=== PATIENT | male | born 1955 | race Caucasian/White ===

== ENCOUNTER → 2017-04-27 | Outpatient (CLI) | payer OTHER ==
[2014-08-23 11:01] VITALS: BP 112/67
[~2017-04-27] MED LIST: ASPI81TA44 PO; BUDE10.2 IH; GABA-586 PO; LISI10TA2 PO; MULT-246 PO; NAPR500T8 PO; OMEP40CA5 PO; TERA10CA3 PO
--- NOTE | 2017-04-27 11:15 | RAD ---
INDICATION: Low back pain and bilateral leg numbness. TECHNIQUE: Sagittal T1, sagittal T2, sagittal STIR, axial T1, and axial T2 sequences are provided. No comparison is available. FINDINGS: There is 4 mm of anterolisthesis at L4-L5. There is otherwise no malalignment. There is no worrisome marrow lesion. There is minimal edema in the anterior superior corner of L4 and L5, probably degenerative. There is diffuse disc desiccation. There is slight narrowing of disc height, most notably at L1-L2. The conus medullaris is normal in signal intensity and in position. The numbering system assumes 5 lumbar type vertebral bodies. Findings by individual level are as follows: L1-L2: Disc bulge and facet and ligamentum flavum hypertrophy are noted. Epidural fat is mildly prominent. Midline AP diameter of the thecal sac is narrowed to 8 mm, mild to moderate. There is mild lateral recess narrowing. There is mild foraminal narrowing. L2-L3: Diffuse disc bulge and mild facet hypertrophy are noted. Epidural fat is again mildly prominent. Midline AP diameter of the thecal sac is narrowed to 9-10 mm. There is lateral recess narrowing, mild and greater on the right. There is [id number] foraminal narrowing, spur on the right contacts and flattens the exiting nerve root. L3-L4: Disc bulge and mild facet hypertrophy are noted. Midline AP diameter of the thecal sac is 10 mm. There is mild right lateral recess narrowing. There is [id number]-[id number] bilateral foraminal narrowing. L4-L5: In addition to the anterolisthesis, there is a diffuse disc bulge. There is moderate facet and ligamentum flavum hypertrophy. There is moderate to severe canal stenosis with minimal CSF surrounding the nerve roots at this level. There is lateral recess narrowing bilaterally. Foraminal narrowing is moderate. L5-S1: There is minimal facet hypertrophy without canal or foraminal compromise. IMPRESSION: Degenerative changes in the lumbar spine are greatest at L4-L5. Electronically signed by: Oscar Jefferson MD (04/27/2017 11:11 AM) [email or web address]
== END | disposition home or self-care (01) ==
LOC: MRI 09:31
PROVIDERS: ATTEND Family Medicine
DX: M47.896 Other spondylosis, lumbar region (principal); M51.26 Other intervertebral disc displacement, lumbar region; M48.061 Spinal stenosis, lumbar region without neurogenic claudication; R20.0 Anesthesia of skin
CPT/HCPCS: 72148

== ENCOUNTER → 2017-08-26 | Outpatient (CLI) | payer MEDICARE | END | disposition home or self-care (01) | LOC: KCIC US 07:51 | DX: I73.9 Peripheral vascular disease, unspecified (principal); I66.01 Occlusion and stenosis of right middle cerebral artery | CPT/HCPCS: 93922; 93925 ==

== ENCOUNTER 2017-09-05 21:24 | Emergency (ER) | payer MEDICARE ==
[2017-09-05 22:51] LABS: ADD MAN DIFF? NO
[2017-09-05 22:54] LABS: BASO # 0.1 x10^3/uL (0.0-0.2); BASO % 1 % (0-3); EOS # 0.3 x10^3/uL (0.0-0.7); EOS % 3 % (0-3); HEMATOCRIT 41.5 % (39.0-53.0); HEMOGLOBIN 14.8 g/dL (13.0-17.5); LYMPH # 2.9 x10^3/uL (1.0-4.8); LYMPH % 29 % (24-48); MEAN CORPUSCULAR HEMOGLOBIN 32 pg (25-35); MEAN CORPUSCULAR HGB CONC 36 g/dL (31-37); MEAN CORPUSCULAR VOLUME 90 fL (79-100); MONO # 0.6 x10^3/uL (0.0-1.1); MONO % 6 % (0-9); NEUT # 6.2 x10^3uL (1.8-7.7); NEUT % 61 % (31-73); PLATELET COUNT 178 x10^3/uL (140-400); RED BLOOD COUNT 4.64 x10^6/uL (4.30-5.70); RED CELL DISTRIBUTION WIDTH 13.9 % (11.5-14.5)
[2017-09-05] MEDS: fentaNYL PF VIAL 100 MCG/2 ML VIAL IV (22:54)
[2017-09-05 23:02] LABS: INR 1.1 (0.8-1.1); PROTHROMBIN TIME PATIENT 13.5 SEC (11.7-14.0)
[2017-09-05 23:05] LABS: ANION GAP 9 (6-14); BLOOD UREA NITROGEN 14 mg/dL (8-26); BUN/CREATININE RATIO 16 (6-20); CALCIUM 8.3 mg/dL (8.5-10.1); CARBON DIOXIDE 27 mmol/L (21-32); CHLORIDE 104 mmol/L (98-107); CREATININE 0.9 mg/dL (0.7-1.3); GFR 85.5; GLUCOSE 97 mg/dL (70-99); POTASSIUM 3.7 mmol/L (3.5-5.1); SODIUM 140 mmol/L (136-145)
[2017-09-05 23:11] LABS: ALBUMIN 3.5 g/dL (3.4-5.0); ALBUMIN/GLOBULIN RATIO 0.9 (1.0-1.7); ALK PHOS 72 U/L (46-116); ALT (SGPT) 21 U/L (16-63); AST (SGOT) 14 U/L (15-37); TOTAL BILIRUBIN 0.6 mg/dL (0.2-1.0); TOTAL PROTEIN 7.3 g/dL (6.4-8.2)
[2017-09-05 23:14] LABS: TROPONINI < 0.017 ng/mL (0.000-0.055)
[2017-09-06] MEDS ORDERED: CONTRAST GIVEN MC
[2017-09-06] MEDS: IOHEXOL 300 MG/ML 100ML VIAL. IV (00:05)
[2017-09-06] MEDS: HYDROcodone/APAP 5/325MG 1 TAB TABLET PO (01:00)
== END 2017-09-06 01:33 | disposition home or self-care (01) ==
LOC: ER 09-06 01:33
DX: R07.89 Other chest pain (principal); J44.9 Chronic obstructive pulmonary disease, unspecified; I10 Essential (primary) hypertension; Z88.5 Allergy status to narcotic agent
CPT/HCPCS: 36415; 71045; 71275; 80053; 84484; 85025; 85610; 93005; 96374; 99285-25; J3010; Q9967

== ENCOUNTER → 2017-09-07 | Outpatient (CLI) | payer MEDICARE ==
[~2017-09-07] MED LIST changes: -ASPI81TA44 PO; -BUDE10.2 IH; -GABA-586 PO; +IOHEXOL 180 MG/ML 10 ML VIAL.; -LISI10TA2 PO; -MULT-246 PO; -NAPR500T8 PO; -OMEP40CA5 PO; -TERA10CA3 PO; +methylPREDNISolone ACETATE 40 MG/ML VIAL.; +methylPREDNISolone ACETATE 80 MG/ML VIAL.
== END ==
LOC: PNCL 09:25
DX: M51.16 Intervertebral disc disorders with radiculopathy, lumbar region (principal); M48.061 Spinal stenosis, lumbar region without neurogenic claudication; E11.9 Type 2 diabetes mellitus without complications; I10 Essential (primary) hypertension; M19.90 Unspecified osteoarthritis, unspecified site; J44.9 Chronic obstructive pulmonary disease, unspecified; E78.00 Pure hypercholesterolemia, unspecified; M79.605 Pain in left leg; M79.604 Pain in right leg; Z98.890 Other specified postprocedural states; Z79.899 Other long term (current) drug therapy; Z88.8 Allergy status to other drugs, medicaments and biological substances; Z87.891 Personal history of nicotine dependence; Z85.828 Personal history of other malignant neoplasm of skin
CPT/HCPCS: 62323; J1030; J1040; Q9965

== ENCOUNTER → 2017-09-21 | Outpatient (CLI) | payer MEDICARE ==
[~2017-09-21] MED LIST changes: +LIDOCAINE 1% PF 2 ML VIAL.
== END | disposition home or self-care (01) ==
LOC: PNCL 10:09
DX: M51.16 Intervertebral disc disorders with radiculopathy, lumbar region (principal); M48.061 Spinal stenosis, lumbar region without neurogenic claudication; Z88.5 Allergy status to narcotic agent; E11.42 Type 2 diabetes mellitus with diabetic polyneuropathy; I10 Essential (primary) hypertension; J44.9 Chronic obstructive pulmonary disease, unspecified; Z98.890 Other specified postprocedural states; M19.90 Unspecified osteoarthritis, unspecified site; Z79.84 Long term (current) use of oral hypoglycemic drugs; Z86.19 Personal history of other infectious and parasitic diseases; F41.9 Anxiety disorder, unspecified; F32.9 Major depressive disorder, single episode, unspecified; Z72.89 Other problems related to lifestyle; F17.200 Nicotine dependence, unspecified, uncomplicated
CPT/HCPCS: 62323; J1030; J1040; Q9965

== ENCOUNTER → 2017-10-25 | Outpatient (CLI) | payer MEDICARE | LOC: PNCL 09:47 | DX: M51.16 Intervertebral disc disorders with radiculopathy, lumbar region (principal); M48.061 Spinal stenosis, lumbar region without neurogenic claudication; E11.42 Type 2 diabetes mellitus with diabetic polyneuropathy; I10 Essential (primary) hypertension; J44.9 Chronic obstructive pulmonary disease, unspecified; F32.9 Major depressive disorder, single episode, unspecified; F41.9 Anxiety disorder, unspecified; F17.210 Nicotine dependence, cigarettes, uncomplicated; Z87.39 Personal history of other diseases of the musculoskeletal system and connective tissue; Z72.89 Other problems related to lifestyle; Z86.19 Personal history of other infectious and parasitic diseases | CPT/HCPCS: 62323; J1030; J1040; Q9965 ==

== ENCOUNTER → 2018-03-13 | Outpatient (CLI) | payer MEDICARE ==
[2017-09-06 01:08] VITALS: BP 125/66
[~2018-03-13] MED LIST changes: +ALPR0.5T PO; +ASPI81TA59 PO; +ATOR40TA59 PO; +BUDE10.2 IH; +DOXY100T9 PO; +GABA-586 PO; +HYDR-971 PO; -IOHEXOL 180 MG/ML 10 ML VIAL.; +IOHEXOL 180 MG/ML 10 ML VIAL. ONE; -LIDOCAINE 1% PF 2 ML VIAL.; +LIDOCAINE 1% PF 2 ML VIAL. ONE; +LISI10TA2 PO; +MELO15TA23 PO; +MULT-246 PO; +NAPR500T8 PO; +OMEP40CA5 PO; +PRED50TA PO; +TERA10CA3 PO; -methylPREDNISolone ACETATE 40 MG/ML VIAL.; +methylPREDNISolone ACETATE 40 MG/ML VIAL. ONE; -methylPREDNISolone ACETATE 80 MG/ML VIAL.; +methylPREDNISolone ACETATE 80 MG/ML VIAL. ONE
--- NOTE | 2018-03-14 00:28 | PAIN ---
DATE OF SERVICE: 03/13/2018 PROGRESS NOTE FOR PAIN CLINIC DIAGNOSES: Lumbar radiculopathy with lumbar degenerative disk disease and lumbar spinal stenosis. HISTORY OF PRESENT ILLNESS: The patient is a 62-year-old male who returns for followup status post lumbar epidural steroid injections, last seen 10/25/2017. The patient did very well with about 75% improvement, looks like overall. The patient reports now about 50% improvement but still has been doing well, has been returning over the past 6-8 weeks in the low back and into the bilateral lower extremities. The patient reports it is 8 on a scale of 10 at its worst, 5 on average and a 2 at its least and is a 5 today. The patient reports it is aching, tight, tingling, burning, cramping, shooting unbearable at times, worse with walking and standing, better with sitting or lying down, does not awaken him from sleep at night. The patient reports no new motor or sensory deficits and no new bowel or bladder incontinence or other complaints. PHYSICAL EXAMINATION: VITAL SIGNS: The patient's blood pressure /75, pulse 87, respirations 18 and temperature 98.5 degrees Fahrenheit. Height is 5 feet 6 inches and weight is 193 pounds. GENERAL: He is awake, alert, oriented, appropriate and very pleasant demeanor. HEENT: Head shows normocephalic and atraumatic. Extraocular movements are intact and symmetrical. Oral cavity: Mucous membranes are moist and pink. Dentition is intact. NECK: Shows anterior throat supple without palpable lymphadenopathy noted. Swallow reflex symmetrical. CHEST: Shows normal on inspection. Breath sounds clear to auscultation bilaterally. HEART: Shows S1 and S2 clear. No murmurs auscultated. ABDOMEN: Soft, nontender and nondistended. No palpable organomegaly is noted. No rebound or guarding demonstrated. BACK: Shows spine grossly in the midline. Normal appearing thoracic kyphosis and lumbar lordotic curvature. Lumbar paraspinous muscle shows symmetrical on inspection, on palpation shows some moderate tenderness but only diffusely without radiation bilaterally. The patient has good rotational motion of the lumbar spine, especially with extension and flexion without difficulty. LOWER EXTREMITIES: Show deep tendon reflexes 2+ in the patellar, 1+ tendo-calcaneus tendons are equal. Motor exam is strong with 5/5 dorsiflexion, extension, quadriceps and hamstring flexion. Peripheral pulses are 1+ posterior tibia. No peripheral edema is noted bilaterally. Options were discussed with the patient. The patient's old chart was reviewed as well as his current medication regimen updated. Current review of systems updated today as well. We will proceed with a lumbar epidural steroid injection today with first in this series with fluoroscopic guidance. Risks were again discussed including, but not limited to bleeding, infection, possibility of epidural hematoma, subsequent neurological compromise, dural puncture, headaches, spinal cord and/or nerve damage, side effects of steroid medication and poor results regarding pain control. The patient understands and wished to proceed. The patient will return to the clinic in approximately 2 weeks for followup, was counseled as to return appointment, activity level and side effects to be aware of. DIAGNOSES: Lumbar radiculopathy with lumbar degenerative disk disease and lumbar spinal stenosis. PROCEDURE: Lumbar epidural steroid injection, translaminar approach, L4-L5 level using C-arm fluoroscopic guidance under sterile prep and drape using local anesthetic. MEDICATION INJECTED: A total of 120 mg Depo-Medrol plus 10 mL of preservative-free normal saline and 2 mL of Isovue for contrast. CONDITION AT DISCHARGE: Stable. The patient tolerated the procedure well and had no complications. ROSENDO HERNANDEZ MD DR: KRISTOFER/celso JOB#: [id number] / [id number]
== END | disposition home or self-care (01) ==
LOC: PNCL 13:58
PROVIDERS: ATTEND Anesthesiology
DX: M51.16 Intervertebral disc disorders with radiculopathy, lumbar region (principal); M48.061 Spinal stenosis, lumbar region without neurogenic claudication; Z88.5 Allergy status to narcotic agent
CPT/HCPCS: 62323; J1030; J1040; Q9965

== ENCOUNTER → 2018-04-07 | Outpatient (CLI) | payer MEDICARE ==
[2017-09-06 01:08] VITALS: BP 125/66
[~2018-04-07] MED LIST changes: -GABA-586 PO; +GABA300C18 PO; +HYDR-3164 PO; -HYDR-971 PO; -IOHEXOL 180 MG/ML 10 ML VIAL. ONE; -LIDOCAINE 1% PF 2 ML VIAL. ONE; -methylPREDNISolone ACETATE 40 MG/ML VIAL. ONE; -methylPREDNISolone ACETATE 80 MG/ML VIAL. ONE
--- NOTE | 2018-04-07 16:20 | RAD ---
Low-dose CT of the chest without contrast, 04/07/2018: HISTORY: 25 pack-year smoking history, current smoker Noncontrast scans were obtained with multiplanar reconstructions produced. There are several calcified granulomata in the right lung. No noncalcified pulmonary nodule or mass is seen. No pulmonary infiltrate or pleural fluid is evident. There are calcified mediastinal lymph nodes due to old granulomatous disease. No mediastinal adenopathy is evident. There is mild calcific plaquing of the thoracic aorta. Several scattered coronary artery calcifications are noted. A surgical plate and screws is noted in the lower cervical spine. There are mild scattered degenerative changes in the thoracic spine. IMPRESSION: 1. Old healed granulomatous disease in the chest. 2. Coronary artery calcifications. 3. Lung RADS category 1-negative. Twelve-month follow-up is suggested. PQRS Compliance Statement: One or more of the following individualized dose reduction techniques were utilized for this examination: 1. Automated exposure control 2. Adjustment of the mA and/or kV according to patient size 3. Use of iterative reconstruction technique Electronically signed by: Jesús Osuna MD (04/07/2018 4:17 PM) [facility], [place]
== END | disposition home or self-care (01) ==
LOC: CT 08:25
PROVIDERS: ATTEND Family Medicine
DX: Z12.2 Encounter for screening for malignant neoplasm of respiratory organs (principal); F17.218 Nicotine dependence, cigarettes, with other nicotine-induced disorders; I25.10 Atherosclerotic heart disease of native coronary artery without angina pectoris; J84.10 Pulmonary fibrosis, unspecified; I70.0 Atherosclerosis of aorta; R59.0 Localized enlarged lymph nodes
CPT/HCPCS: G0297

== ENCOUNTER → 2018-04-20 | Outpatient (CLI) | payer MEDICARE ==
[2017-09-06 01:08] VITALS: BP 125/66
[~2018-04-20] MED LIST changes: +IOHEXOL 180 MG/ML 10 ML VIAL. ONE; +methylPREDNISolone ACETATE 40 MG/ML VIAL. ONE; +methylPREDNISolone ACETATE 80 MG/ML VIAL. ONE
--- NOTE | 2018-04-20 17:29 | PAIN ---
DATE OF SERVICE: 04/20/2018 PROGRESS NOTE FOR PAIN CLINIC DIAGNOSIS: Lumbar radiculopathy with lumbar spinal stenosis and lumbar degenerative disk disease. HISTORY OF PRESENT ILLNESS: The patient is a 62-year-old male who returns for followup status post lumbar epidural steroid injection x 1. The patient reports 100% improvement for about 3 weeks following the injection and the pain is beginning to return. There has been about 50% improvement overall in the low back and into the bilateral lower extremities. The patient reports it is aching across the back and the bilateral posterior gluteus, posterior lateral thigh, lateral anterior thigh, anterior medial thighs with walking, standing, changing positions, better with sitting or lying down. Reports it does not awaken him from sleep very frequently, but a few times over the past week, the patient reports his pain is tingling, becoming more constant, aching, dull, shooting, also pain in the base of the neck and the upper extremities, more on the left side with some numbness and tingling in his fourth and fifth fingers. The patient reports the pain is at 8 on a scale of 10 in his low back and legs at its worst, 4-5 on average and 2 at its least and is a 4 today. The patient reports no new motor or sensory deficits, no new bowel or bladder incontinence or other complaints. PHYSICAL EXAMINATION: VITAL SIGNS: The patient's blood is 137/75, pulse 87, respirations 18, temperature 98.3 degrees Fahrenheit. Height is 5 feet 6 inches, weight is 193 pounds. GENERAL: The patient is awake, alert, oriented, appropriate, very pleasant demeanor. HEENT: Shows normocephalic, atraumatic. Extraocular movements are intact and symmetrical. Oral cavity: Mucous membranes moist and pink. Dentition is intact. NECK: Shows anterior throat supple without palpable lymphadenopathy noted. Swallow reflex symmetrical. CHEST: Shows normal with inspection. Breath sounds clear to auscultation bilaterally. HEART: Shows S1, S2 clear. No murmurs auscultated. ABDOMEN: Soft, nontender, nondistended. No palpable organomegaly is noted. No rebound or guarding demonstrated. BACK: Shows spine grossly in the midline, normal appearing cervical lordotic curvature, thoracic kyphotic curvature and lumbar lordotic curvature, some mild tenderness in the cervical paraspinous musculature bilaterally, but only diffusely without radiation. The patient's lumbar paraspinous muscle shows symmetrical on inspection, on palpation shows some moderate tenderness with palpation, but only diffusely without radiation as well. The patient has good rotational motion of lumbar spine both laterally as well as extension and flexion without significant difficulty. EXTREMITIES: Lower extremities show deep tendon reflexes 2+ in the patella and 1+ in tendo calcaneus tendons. Motor exam is 5/5 on dorsiflexion, extension, quadriceps and hamstring flexion. Peripheral pulses are 1+ posterior tibia. No peripheral edema bilaterally. Options were discussed with the patient. The patient's old chart was reviewed as his current medication regimen updated. Current review of systems updated today as well. We will proceed with a lumbar epidural steroid injection today with fluoroscopic guidance. Risks were again discussed including, but not limited to, bleeding, infection, possibility of epidural hematoma, subsequent neurological compromise, dural puncture, headaches, spinal cord and/or nerve damage, side effects of steroid medication and poor results regarding pain control. The patient understands and wished to proceed. The patient to return to clinic in approximately 2 weeks for followup, was counseled on return appointment, activity level and side effects to be aware of. DIAGNOSIS: Lumbar radiculopathy with lumbar degenerative disk disease, lumbar spinal stenosis. PROCEDURE: Lumbar epidural steroid injection, translaminar approach at the L4-L5 level using C-arm fluoroscopic guidance under sterile prep and drape using local anesthetic. MEDICATION INJECTED: A total of 120 mg Depo-Medrol plus 10 mL of preservative-free normal saline and 2 mL of Isovue for contrast. CONDITION AT DISCHARGE: Stable. The patient tolerated procedure well, had no complications. ROSENDO HERNANDEZ MD DR: KRISTOFER/celso JOB#: [id number] / [id number]
== END | disposition home or self-care (01) ==
LOC: PNCL 13:10
PROVIDERS: ATTEND Anesthesiology
DX: M51.16 Intervertebral disc disorders with radiculopathy, lumbar region (principal); M48.061 Spinal stenosis, lumbar region without neurogenic claudication; Z88.5 Allergy status to narcotic agent
CPT/HCPCS: 62323; J1030; J1040; Q9965

== ENCOUNTER → 2018-05-18 | Outpatient (CLI) | payer MEDICARE ==
[2017-09-06 01:08] VITALS: BP 125/66
--- NOTE | 2018-05-18 18:01 | PAIN ---
DATE OF SERVICE: 05/18/2018 PROGRESS NOTE FOR PAIN CLINIC DIAGNOSES: 1. Lumbar radiculopathy with lumbar degenerative disk disease. 2. Lumbar spinal stenosis. HISTORY OF PRESENT ILLNESS: The patient is an 62-year-old male who returns for followup status post lumbar epidural steroid injection x 2. The patient reports about 60% improvement overall in the low back, bilateral lower extremity pain, still some pain in the lower legs with extended walking, standing, but otherwise doing much better, was increasing his distance walking, able to do work activities with greater ease and comfort as well as household activities and traveling with greater comfort. The patient reports it does not awaken him from sleep at night, feels better with sitting or lying down, sleeps about 7 hours without difficulty most nights. The patient reports pain is 8 on a scale of 10 at its worst, 6 on an average, 5 on its least and is about 6 today. The patient reports it is tingling, burning in the low back, in the lower extremities, on and off in intensity, but worse while standing. The patient reports no new motor or sensory deficits, no new bowel or bladder incontinence or other complaints. PHYSICAL EXAMINATION: VITAL SIGNS: The patient's blood pressure is 136/75, pulse 78, respirations are 18, temperature is 98.3 degrees Fahrenheit, height is 5 feet 6 inches, weighs 197 pounds. GENERAL: The patient is awake, alert, oriented, appropriate, very pleasant demeanor. HEENT: Head shows normocephalic, atraumatic. Extraocular movements intact and symmetrical. Oral cavity: Mucous membranes moist and pink. Dentition is intact. NECK: Shows anterior throat supple without palpable lymphadenopathy noted. Swallow reflex is symmetrical. CHEST: Shows normal on inspection. Breath sounds clear to auscultation bilaterally. HEART: Shows S1, S2 clear. No murmurs auscultated. ABDOMEN: Soft, nontender, nondistended. No palpable organomegaly is noted. No rebound or guarding demonstrated. BACK: Shows spine grossly in the midline. Normal-appearing thoracic kyphosis and lumbar lordotic curvature. Lumbar paraspinous muscle shows symmetrical on inspection; on palpation, shows some mild tenderness diffusely throughout the upper, middle and lower distribution of paraspinous muscles, but only diffusely. The patient has good rotational motion of lumbar spine, both laterally as well as extension and flexion without difficulty. EXTREMITIES: Lower extremities show deep tendon reflexes 2+ in the patellar and 1+ tendo calcaneus tendons. Motor exam is strong with 5/5 dorsiflexion and extension, quadriceps and hamstring flexion and symmetrical. Peripheral pulses are 1+ posterior tibial. No peripheral edema is noted bilaterally. Options were discussed with the patient. The patient's old chart was reviewed as was his current medication regimen updated. Current review of systems updated today as well. We will proceed with a third in the series of lumbar epidural steroid injection today with fluoroscopic guidance. Risks were again discussed including, but not limited to bleeding, infection, possibility of epidural hematoma and subsequent neurological compromise, dural puncture, headaches, spinal cord and/or nerve damage, side effects of steroid medication and poor results regarding pain control. The patient understands and wished to proceed. The patient to return to clinic in approximately 2 weeks for followup. She was counseled as to return appointment interval and side effects to be aware of. DIAGNOSES: 1. Lumbar radiculopathy with lumbar degenerative disk disease. 2. Lumbar spinal stenosis. PROCEDURE: Lumbar epidural steroid injection, translaminar approach L4-L5 level using C-arm fluoroscopic guidance under sterile prep and drape using local anesthetic. MEDICATION INJECTED: A total of 120 mg Depo-Medrol plus 10 mL of preservative-free normal saline and 2 mL of Isovue for contrast. CONDITION AT DISCHARGE: Stable. The patient tolerated the procedure well, had no complications. ROSENDO HERNANDEZ MD DR: KRISTOFER/celso JOB#: [id number] / [id number]
== END | disposition home or self-care (01) ==
LOC: PNCL 14:00
PROVIDERS: ATTEND Anesthesiology
DX: M51.16 Intervertebral disc disorders with radiculopathy, lumbar region (principal); M48.061 Spinal stenosis, lumbar region without neurogenic claudication; Z88.5 Allergy status to narcotic agent
CPT/HCPCS: 62323; J1030; J1040; Q9965

== ENCOUNTER → 2018-09-20 | Outpatient (CLI) | payer MEDICARE ==
[2017-09-06 01:08] VITALS: BP 125/66
[~2018-09-20] MED LIST changes: +ALPR0.5T6 PO; +DOCU-150 PO
--- NOTE | 2018-09-20 18:57 | PAIN ---
DATE OF SERVICE: 09/20/2018 DIAGNOSES: Lumbar radiculopathy with lumbar degenerative disk disease, lumbar spinal stenosis. HISTORY OF PRESENT ILLNESS: The patient is a 62-year-old male who returns for followup status post lumbar epidural steroid injections x 3, most recently seen 05/18/2018. The patient did very well with about 50% improvement for about 2 months. The patient reports the pain returned then in the low back and into the bilateral lower extremities, mostly in the posterior gluteus, posterolateral thigh, lateral anterior thigh, medial thigh, medial lower legs, also in the calves bilaterally with tingling, burning, cramping sensation, aching in the low back, becoming more severe, more constant over time. The patient reports it is a 9 on a scale of 10 at its worst over the past week, 6 on average, 5 at its least and is a 6 today. The patient reports no new motor or sensory deficits. No new bowel or bladder incontinence, but still significant pain with walking, standing, change in positions. Initially, he was doing great with distance walking, doing work activities and household activities with greater ease and comfort, travelling with greater ease and comfort as well. The patient reports now the pain is returning, but without any new motor or sensory deficits. The patient reports no new bowel or bladder incontinence as well and better with lying down. It does not awaken him from sleep very frequently, but has over the past few weeks about every 6-8 hours. PHYSICAL EXAMINATION: VITAL SIGNS: Today, the patient's blood pressure 129/79, pulse 80, respirations 16, temperature 98.0 degrees Fahrenheit, height is 5 feet 6 inches, weighs 200 pounds. GENERAL: The patient is awake, alert, oriented, appropriate, very pleasant demeanor. HEENT: Shows normocephalic, atraumatic. Extraocular movements are intact and symmetrical. Oral cavity: Mucous membranes moist and pink. Dentition is intact. NECK: Shows anterior throat supple without palpable lymphadenopathy noted. Swallow reflex is symmetrical. CHEST: Shows normal on inspection. Breath sounds are clear to auscultation bilaterally. HEART: Shows S1, S2 clear. No murmurs auscultated. ABDOMEN: Soft, nontender, nondistended. No palpable organomegaly is noted. No rebound or guarding demonstrated. BACK: Shows spine grossly in the midline. Normal appearing thoracic kyphosis and lumbar lordotic curvature. Lumbar paraspinous muscle shows symmetrical on inspection. On palpation shows some moderate tenderness diffusely bilaterally, but only diffusely without radiation. EXTREMITIES: The patient's lower extremities show deep tendon reflexes 2+ in the patellar, 1+ tendo calcaneus tendons. Motor exam is strong with 5/5 dorsiflexion, extension, quadriceps and hamstring flexion and symmetrical. Peripheral pulses are 1+ posterior tibia. No peripheral edema is noted. Options were discussed with the patient. The patient's old chart was reviewed as was his current medication regimen updated. Current review of systems is updated today as well. We will proceed with the first in this series of lumbar epidural steroid injection today with fluoroscopic guidance. Risks were again discussed including, but not limited to bleeding, infection, possibility of epidural hematoma, subsequent neurologic compromise, dural puncture, headaches, spinal cord and/or nerve damage, side effects of steroid medication and poor results regarding pain control. The patient understands and wished to proceed. The patient will return to the clinic in approximately 2 weeks for followup, was counseled on return appointment, activity level, and side effects to be aware of. DIAGNOSIS: Lumbar radiculopathy with lumbar degenerative disk disease, lumbar spinal stenosis. PROCEDURE: Lumbar epidural steroid injection, translaminar approach at the L4-L5 level using C-arm fluoroscopic guidance under sterile prep and drape using local anesthetic. MEDICATION INJECTED: A total of 120 mg Depo-Medrol plus 10 mL preservative-free normal saline and 2 mL of Isovue for contrast. CONDITION AT DISCHARGE: Stable. The patient tolerated the procedure well, had no complications. ROSENDO HERNANDEZ MD DR: KRISTOFER/celso JOB#: [id number] / [id number]
== END | disposition home or self-care (01) ==
LOC: PNCL 09:17
PROVIDERS: ATTEND Anesthesiology
DX: M51.16 Intervertebral disc disorders with radiculopathy, lumbar region (principal); M48.061 Spinal stenosis, lumbar region without neurogenic claudication; Z88.5 Allergy status to narcotic agent
CPT/HCPCS: 62323; J1030; J1040; Q9965

== ENCOUNTER → 2018-10-04 | Outpatient (CLI) | payer MEDICARE ==
[2017-09-06 01:08] VITALS: BP 125/66
--- NOTE | 2018-10-05 02:21 | PAIN ---
DATE OF SERVICE: 10/04/2018 PROGRESS NOTE FOR PAIN CLINIC DIAGNOSIS: Lumbar radiculopathy with lumbar degenerative disk disease, lumbar spinal stenosis. HISTORY OF PRESENT ILLNESS: The patient is a 62-year-old male who returns for followup status post lumbar epidural steroid injection x 1 on 09/20/2018. The patient reports about 30% improvement in his back and bilateral lower extremities pain. The patient reports he is having some cramps in the legs as well as in the hands. Otherwise, the pain is significantly reduced in the low back. The patient reports it took about 3 days to decrease the pain, but the pain was much better after that time. The patient reports it is still currently about 30% improved overall where he can increase his activity to greater distance walking, doing household activities, travelling with greater ease and comfort. The patient reports his pain is 7 on a scale of 10 at its worst over the past week, 4 on an average, 0 at its least and is 4 today. The patient reports it is across the low back, tingling and cramping in the legs bilaterally, mostly in the lateral thighs, posterior gluteus and anterior medial thigh to the lower legs as well. The patient reports no new motor or sensory deficits, no new bowel or bladder incontinence, no other complaints. PHYSICAL EXAMINATION: VITAL SIGNS: The patient's blood pressure is 134/87, pulse 78, respirations 16, temperature is 97.4 degrees Fahrenheit, height 5 feet 6 inches, weight is 194 pounds. GENERAL: The patient is awake, alert, oriented, appropriate, very pleasant demeanor. HEENT: Normocephalic, atraumatic. Extraocular movements are intact and symmetrical. Oral cavity, mucous membranes are most and pink. Dentition is intact. NECK: Shows anterior throat supple without palpable lymphadenopathy noted. Swallow reflex is symmetrical. CHEST: Shows normal on inspection. Breath sounds are clear to auscultation bilaterally. HEART: Shows S1, S2 clear. No murmurs auscultated. ABDOMEN: Soft, obese, nontender, nondistended. BACK: Shows spine grossly in the midline. Normal appearance of the thoracic kyphosis and lumbar lordotic curvature. Lumbar paraspinous muscles shows symmetric on inspection; on palpation shows some moderate tenderness diffusely with palpation, but only diffusely without radiation. EXTREMITIES: The patient's lower extremities show deep tendon reflexes at 2+ in the patellar, 1+ tendo-calcaneus tendons. Motor exam is strong with 5/5 dorsiflexion, extension, quadriceps and hamstring flexion and symmetrical and equal. Peripheral pulses are 1+ posterior tibial. No peripheral edema is noted bilaterally. Options were discussed with the patient. The patient's old chart was reviewed as was his current medication regimen updated. Current review of systems updated today as well. We will proceed with second in the series of lumbar epidural steroid injection today under fluoroscopic guidance. Risks were discussed including, but not limited to bleeding, infection, possibility of epidural hematoma, subsequent neurological compromise, dural puncture, headaches, spinal cord and/or nerve damage, side effects of steroid medication and poor results regarding pain control. The patient understands and wished to proceed. The patient will return to clinic in approximately 2 weeks for followup, was counseled as to return appointment, activity level and side effects to be aware of. DIAGNOSIS: Lumbar radiculopathy with lumbar degenerative disk disease, lumbar spinal stenosis. PROCEDURE: Lumbar epidural steroid injection, translaminar approach at the L4-L5 level using C-arm fluoroscopic guidance under sterile prep and drape using local anesthetic. MEDICATIONS INJECTED: Total of 120 mg of 120 mg Depo-Medrol plus 10 mL of preservative-free normal saline and 2 mL of contrast. CONDITION AT DISCHARGE: Stable. The patient tolerated the procedure well, had no complications. ROSENDO HERNANDEZ MD DR: KRISTOFER/celso JOB#: [id number] / [id number]
== END ==
LOC: PNCL 09:34
PROVIDERS: ATTEND Anesthesiology
DX: M51.16 Intervertebral disc disorders with radiculopathy, lumbar region (principal); M48.061 Spinal stenosis, lumbar region without neurogenic claudication; M54.9 Dorsalgia, unspecified
CPT/HCPCS: 62323; J1030; J1040; Q9965

== ENCOUNTER → 2018-10-18 | Outpatient (CLI) | payer MEDICARE ==
[2017-09-06 01:08] VITALS: BP 125/66
--- NOTE | 2018-10-18 20:25 | PAIN ---
DATE OF SERVICE: 10/18/2018 PROGRESS NOTE FOR PAIN CLINIC DIAGNOSES: Lumbar radiculopathy with lumbar degenerative disk disease, lumbar spinal stenosis. HISTORY OF PRESENT ILLNESS: The patient is a 62-year-old male who returns for followup status post lumbar epidural steroid injection x 2. The patient reports about 80% improvement overall after the last injection, but still has some pain in the low back and bilateral lower extremities, has some numbness in the feet, but the numbness is much improved. The patient reports the pain is a 6 on a scale of 10 at its worst in the past week, 4 on average, 2 at its least and is a 4 today. The patient reports it is aching, tight, cramping, tingling, worse with walking, standing and better with sitting or lying down. It awakens him from sleep every few hours, but not every night. The patient reports no new motor or sensory deficits, no new bowel or bladder incontinence or other complaints. PHYSICAL EXAMINATION: VITAL SIGNS: The patient's blood pressure is 131/80, pulse 78, respirations 16, temperature is 98.3 degrees Fahrenheit. Height is 5 feet 6 inches, weight is 198 pounds. GENERAL: The patient is awake, alert, oriented, appropriate, very pleasant demeanor. HEENT: Head shows normocephalic, atraumatic. Extraocular movements are intact and symmetrical. Oral cavity: Mucous membranes are moist and pink. Dentition intact. NECK: Shows anterior throat supple without palpable lymphadenopathy noted. Swallow reflex is symmetrical. CHEST: Shows normal on inspection. Breath sounds clear to auscultation bilaterally. HEART: Shows S1, S2 clear. No murmurs auscultated. ABDOMEN: Soft, nontender, nondistended. No palpable organomegaly is noted. No rebound or guarding demonstrated. BACK: Shows spine grossly in the midline. Normal appearing thoracic kyphosis and lumbar lordotic curvature. Lumbar paraspinous muscle shows symmetrical on inspection, on palpation shows moderate tenderness bilaterally in the lower lumbar distribution, but only in the inferior aspect without radiation. The patient has good rotational motion of lumbar spine, both laterally as well as extension and flexion without significant difficulty. EXTREMITIES: The patient's lower extremities show deep tendon reflexes 2+ in the patellar and 1+ in tendo calcaneus tendons. Motor exam is strong with 5/5 dorsiflexion, extension, quadriceps and hamstring flexion equal. Peripheral pulses are 1+. No peripheral edema is noted. Options were discussed with the patient. The patient's old chart was reviewed as his current medication regimen updated. Current review of systems updated today as well. We will proceed with the third in the series of lumbar epidural steroid injection today with fluoroscopic guidance. Risks were again discussed including, but not limited to, bleeding, infection, possibility of epidural hematoma, subsequent neurological compromise, dural puncture, headache, spinal cord and/or nerve damage, side effects of steroid medication and poor results regarding pain control. The patient understands and wished to proceed. The patient will return to the clinic in approximately 2 weeks for followup. He was counseled as to his return appointment, activity level and side effects to be aware of. DIAGNOSES: Lumbar radiculopathy with lumbar degenerative disk disease and lumbar spinal stenosis. PROCEDURE: Lumbar epidural steroid injection, translaminar approach at L4-L5 level using C-arm fluoroscopic guidance under sterile prep and drape using local anesthetic. MEDICATION INJECTED: A total of 120 mg Depo-Medrol plus 10 mL of preservative-free normal saline and 2 mL of contrast. CONDITION ON DISCHARGE: Stable. The patient tolerated the procedure well, had no complications. ROSENDO HERNANDEZ MD DR: KRISTOFER/celso JOB#: [id number] / [id number]
== END ==
LOC: PNCL 09:59
PROVIDERS: ATTEND Anesthesiology
DX: M51.16 Intervertebral disc disorders with radiculopathy, lumbar region (principal); M48.061 Spinal stenosis, lumbar region without neurogenic claudication
CPT/HCPCS: 62323; J1030; J1040; Q9965

== ENCOUNTER → 2019-01-03 | Outpatient (CLI) | payer MEDICARE ==
[2017-09-06 01:08] VITALS: BP 125/66
[~2019-01-03] MED LIST changes: -IOHEXOL 180 MG/ML 10 ML VIAL. ONE; -methylPREDNISolone ACETATE 40 MG/ML VIAL. ONE; -methylPREDNISolone ACETATE 80 MG/ML VIAL. ONE
--- NOTE | 2019-01-03 10:58 | KCIC ---
HAND RIGHT 3V 01/03/2019 12:00 AM INDICATION: Spider bite to the right hand, swelling COMPARISON: None available. TECHNIQUE: 3 views of the right hand are provided. FINDINGS: There is no acute fracture or dislocation. Bone mineralization is within normal limits. Mild to moderate joint space narrowing of the first carpometacarpal joint with marginal osteophytosis. Mild interphalangeal joint space narrowing. Soft tissue swelling is identified in the thenar region without subcutaneous gas. There is no soft tissue gas or osseous erosion. IMPRESSION: No acute fracture or dislocation. Soft tissue swelling without subcutaneous gas or underlying osseous normality. Moderate to advanced osteoarthrosis of the first carpometacarpal joint. Electronically signed by: Malu Ventura MD (01/03/2019 10:55 AM) [facility]
== END | disposition home or self-care (01) ==
LOC: KCIC 09:53
PROVIDERS: ATTEND Family Medicine
DX: T63.301A Toxic effect of unspecified spider venom, accidental (unintentional), initial encounter (principal); L03.113 Cellulitis of right upper limb; M19.041 Primary osteoarthritis, right hand; M79.89 Other specified soft tissue disorders; Y92.89 Other specified places as the place of occurrence of the external cause
CPT/HCPCS: 73130

== ENCOUNTER → 2019-02-08 | Outpatient (CLI) | payer MEDICARE ==
[2017-09-06 01:08] VITALS: BP 125/66
[~2019-02-08] MED LIST changes: +DOXY-96 PO; -DOXY100T9 PO; +OMEP40CA45 PO; -OMEP40CA5 PO
--- NOTE | 2019-02-08 13:50 | KCIC ---
EXAM: Lumbar spine MRI without contrast. HISTORY: Lumbar radiculopathy. TECHNIQUE: Multiplanar, multisequence magnetic resonance imaging of the lumbar spine was performed without contrast. COMPARISON: 04/27/2017 FINDINGS: There is mild S-shaped lumbar scoliosis with dextrocurvature centered at the lower lumbar levels and levocurvature centered at the upper lumbar levels. There is grade 1 anterolisthesis of L4 and L5, measuring 6 mm. There is 3 mm retrolisthesis of L3 on L4. There is degenerative endplate remodeling with disc desiccation and disc space narrowing at L1-L2, L2-L3, L3-L4 and L4-L5. There is relative sparing of the disc space at L5-S1. There are few incidental osseous hemangiomas. There is no acute or subacute fracture. There is no suspicious osseous lesion. The conus terminates at T12-L1. At L1-L2, there is a diffuse disc bulge and endplate osteophytosis. There is mild bilateral facet arthropathy. There is mild bilateral foraminal stenosis. There is mild central canal stenosis. At L2-L3, there is a diffuse disc bulge and endplate osteophytosis. There is mild bilateral facet arthropathy. There is mild bilateral foraminal stenosis. There is mild central canal stenosis. At L3-L4, there is a diffuse disc bulge and endplate osteophytosis. There is mild bilateral facet arthropathy. There is mild retrolisthesis. There is mild bilateral foraminal stenosis. At L4-L5, there are bilateral foraminal to extra foraminal disc protrusions with slight superior extrusion superimposed on a diffuse disc bulge and endplate osteophytosis. There is severe left greater than right facet arthropathy. There is hypertrophy of the ligamentum flavum. There is grade 1 anterolisthesis. There is moderate right and severe left foraminal stenosis with effacement of the exiting L4 nerve roots. There is severe central canal stenosis. At L5-S1, there is no stenosis. IMPRESSION: 1. L4-L5: Bilateral foraminal to extra foraminal disc protrusions with slight superior extrusion superimposed on a disc bulge, endplate osteophytosis, severe facet arthropathy, hypertrophy of the ligamentum flavum and grade 1 anterolisthesis. This results in moderate right and severe left foraminal and severe central canal stenosis. 2. Degenerative change throughout the remainder of the lumbar spine, described in detail above. This is associated with mild bilateral foraminal and central canal stenosis at L1-L2 and L2-L3 and mild bilateral foraminal stenosis at L3-L4. 3. Mild S-shaped lumbar scoliosis, grade 1 anterolisthesis of L4 and L5 and mild retrolisthesis of L3 on L4. Electronically signed by: Sandy Manuel MD (02/08/2019 1:47 PM) [facility]
== END ==
LOC: KCIC MRI 12:58
PROVIDERS: ATTEND Anesthesiology
DX: M51.16 Intervertebral disc disorders with radiculopathy, lumbar region (principal); M48.061 Spinal stenosis, lumbar region without neurogenic claudication
CPT/HCPCS: 72148

== ENCOUNTER → 2019-03-06 | Outpatient (CLI) | payer MEDICARE ==
[2017-09-06 01:08] VITALS: BP 125/66
--- NOTE | 2019-03-06 13:18 | RAD ---
EXAM: Lumbar spine, flexion and extension. HISTORY: Spondylolisthesis. COMPARISON: 02/08/2019 FINDINGS: Lateral neutral, flexion and extension views of the lumbar spine are obtained. There is grade 1 anterolisthesis of L4 and L5. This measures 4 mm in neutral position and increases to 7 mm with flexion and decreases to 3 mm with extension. There is no additional significant listhesis. There is degenerative endplate remodeling at all levels. There is facet arthropathy predominantly at the lower lumbar levels. No fracture is seen. IMPRESSION: 1. Grade 1 anterolisthesis of L4 on L5 which slightly changes between flexion and extension. 2. Multilevel degenerative change throughout the lumbar spine. Electronically signed by: Sandy Manuel MD (03/06/2019 1:16 PM) [facility]
== END | disposition home or self-care (01) ==
LOC: RAD 11:46
PROVIDERS: ATTEND Neurological Surgery
DX: M47.816 Spondylosis without myelopathy or radiculopathy, lumbar region (principal); M43.16 Spondylolisthesis, lumbar region; M12.88 Other specific arthropathies, not elsewhere classified, other specified site
CPT/HCPCS: 72020; 72120

== ENCOUNTER → 2019-04-10 | Outpatient (CLI) | payer MEDICARE ==
[2017-09-06 01:08] VITALS: BP 125/66
--- NOTE | 2019-04-10 16:41 | RAD ---
Examination: CT LOW DOSE LUNG SCREENING History: Nicotine dependence, smoker for 45 years Comparison/Correlation: 04/07/2018 low-dose lung cancer screening CT exam Findings: Axial images of chest were obtained without contrast. Sagittal and coronal reformatted images were provided. Low-dose lung cancer screening CT protocol was utilized. Postoperative cervical spine fusion noted. Mild tracheomalacia noted. At the nondependent aspect of the proximal left main bronchus, there is nodular opacity which is slightly low in density probably representing mucus measuring up to 1.6 cm transverse by 0.6 and there by 0.6 cm. Punctate density in the nondependent aspect of the distal trachea also is present but much smaller in size. Calcified granuloma involves the anterior aspect of the right upper lung. Calcified granuloma at the right lung base also seen. Partially visualized upper abdomen is unremarkable. Impression: Lung rads category 3-probably benign. There is low-density within the left proximal main bronchus probably representing mucus rather than a masslike process. Punctate density involving the distal trachea also is present in nondependent location. This also likely represents mucus. Interval follow-up CT in 6 weeks is recommended to assess for resolution. PQRS Compliance Statement: One or more of the following individualized dose reduction techniques were utilized for this examination: 1. Automated exposure control 2. Adjustment of the mA and/or kV according to patient size 3. Use of iterative reconstruction technique Electronically signed by: Jesus Portillo MD (04/10/2019 4:38 PM) [facility]
== END | disposition home or self-care (01) ==
LOC: CT 15:17
PROVIDERS: ATTEND Family Medicine
DX: Z12.2 Encounter for screening for malignant neoplasm of respiratory organs (principal); J39.8 Other specified diseases of upper respiratory tract; J84.10 Pulmonary fibrosis, unspecified; F17.210 Nicotine dependence, cigarettes, uncomplicated
CPT/HCPCS: G0297

== ENCOUNTER → 2019-04-23 | Outpatient (CLI) | payer MEDICARE ==
[2017-09-06 01:08] VITALS: BP 125/66
[~2019-04-23] MED LIST changes: +BUDE10.22 IH; +CALC625T12 PO; +CHOL200027 PO; +HYDR-2761 PO
--- NOTE | 2019-04-23 15:53 | EKG ---
[facility] [address] [place] [address] Test Date: 2019-04-23 Test Time: 15:31:58 Pat Name: CONNOR FORD Department: Room: Gender: M Specimen Transporter: : 1955 Requested By: KECIA SLOAN Order Number: [id number] Reading MD: Guillermo Barrera Measurements Intervals [place] Rate: 81 P: 34 HI: 152 QRS: 42 QRSD: 86 T: 36 QT: 394 QTc: 458 Interpretive Statements SINUS RHYTHM LOW LIMB LEAD VOLTAGE Electronically Signed On 04-24-2019 11:07:36 SECURITY DIRECTOR by Guillermo Barrera
[2019-04-23 15:54] LABS: BASO # 0.1 x10^3/uL (0.0-0.2); BASO % 2 % (0-3); EOS # 0.2 x10^3/uL (0.0-0.7); EOS % 4 % (0-3); HEMATOCRIT 46.1 % (39.0-53.0); HEMOGLOBIN 15.5 g/dL (13.0-17.5); LYMPH # 2.2 x10^3/uL (1.0-4.8); LYMPH % 40 % (24-48); MEAN CORPUSCULAR HEMOGLOBIN 30 pg (25-35); MEAN CORPUSCULAR HGB CONC 34 g/dL (31-37); MEAN CORPUSCULAR VOLUME 89 fL (79-100); MONO # 0.3 x10^3/uL (0.0-1.1); MONO % 5 % (0-9); NEUT # 2.7 x10^3/uL (1.8-7.7); NEUT % 49 % (31-73); PLATELET COUNT 161 x10^3/uL (140-400); RED BLOOD COUNT 5.17 x10^6/uL (4.30-5.70); RED CELL DISTRIBUTION WIDTH 14.2 % (11.5-14.5); WHITE BLOOD COUNT 5.5 x10^3/uL (4.0-11.0)
[2019-04-23 16:02] LABS: PROTHROMBIN TIME PATIENT 12.8 SEC (11.7-14.0)
[2019-04-23 16:10] LABS: ALBUMIN 4.2 g/dL (3.4-5.0); ALBUMIN/GLOBULIN RATIO 1.2 (1.0-1.7); CALCIUM 8.9 mg/dL (8.5-10.1); CREATININE 0.8 mg/dL (0.7-1.3); GFR 97.3; POTASSIUM 3.9 mmol/L (3.5-5.1); TOTAL BILIRUBIN 0.5 mg/dL (0.2-1.0); TOTAL PROTEIN 7.8 g/dL (6.4-8.2)
== END | disposition home or self-care (01) ==
LOC: SURGPAT 13:25
PROVIDERS: ATTEND Neurological Surgery
DX: Z01.818 Encounter for other preprocedural examination (principal); M43.16 Spondylolisthesis, lumbar region; M48.062 Spinal stenosis, lumbar region with neurogenic claudication; Z88.5 Allergy status to narcotic agent; Z88.8 Allergy status to other drugs, medicaments and biological substances
CPT/HCPCS: 36415; 80053; 82306; 85025; 85610; 85730; 87641; 93005

== ENCOUNTER → 2019-08-20 | Outpatient (CLI) | payer MEDICARE ==
[2019-07-06 11:00] VITALS: BP 143/66
[~2019-08-20] MED LIST changes: +GADOTERATE 7.5 MMOL/15ML VIAL. IVP ONE
--- NOTE | 2019-08-20 09:52 | KCIC ---
LUMBAR SPINE WO/W CONTRAST Date: 08/20/2019 8:45 AM Indication: Infection. Lumbar surgery 06/25/2019 Comparison: CT 06/29/2019. MRI 02/08/2019. Technique: Multi-planar multi-weighted magnetic resonance imaging of the lumbar spine was performed with and without intravenous contrast using the standard lumbar spine protocol. 15 cc Dotarem contrast was administered intravenously during the examination. FINDINGS: Postsurgical changes of posterior decompression and posterior instrumentation with interbody spacer at L4-5. Postsurgical enhancement in the posterior paraspinal tissues. Small amount of fluid in the bilateral laminectomy defects. 3 mm anterolisthesis of L3-4. 5 mm anterolisthesis of L4-5. No acute fracture. Mild to moderate multilevel degenerative disc desiccation and disc height loss. Edema and enhancement of the endplates at L4-5. No fluid signal in the L4-5 disc space. The conus terminates at a normal level. No abnormal signal is seen within the visualized distal spinal cord. No clumping of intrathecal nerve roots. No soft tissue abnormality in the visualized abdomen or pelvis. T12-L1: No disc bulge. No facet arthropathy. No significant spinal stenosis or neural foraminal narrowing. L1-L2: Disc bulge. Mild facet arthropathy. Mild spinal stenosis. Mild bilateral neural foraminal narrowing. L2-L3: Disc bulge. Mild facet arthropathy. Mild spinal stenosis. Mild bilateral neural foraminal narrowing. L3-L4: Disc bulge. Moderate facet arthropathy. Mild spinal stenosis. Mild bilateral neural foraminal narrowing. L4-L5: Posterior decompression. Improved now mild to moderate spinal canal stenosis. Moderate right and severe left neural foraminal narrowing. L5-S1: Disc bulge. Mild facet arthropathy. No significant spinal stenosis or neural foraminal narrowing. IMPRESSION: Posterior decompression and instrumentation at L4-5. Small amount of postsurgical fluid in the bilateral laminectomy defects, sterility not assessed by imaging. No epidural collections. Edema and enhancement of the endplates at L4-5 is probably degenerative/reactive given interbody spacer placement. Correlate with laboratory values. Improved and now mild to moderate spinal canal stenosis at L4-5, previously severe. Degenerative changes at the remaining levels as detailed above. Electronically signed by: Rigoberto Morris MD (08/20/2019 9:49 AM) [id number]
== END | disposition home or self-care (01) ==
LOC: KCIC MRI 08:10
PROVIDERS: ATTEND Neurological Surgery
DX: T81.40XA Infection following a procedure, unspecified, initial encounter (principal); M12.88 Other specific arthropathies, not elsewhere classified, other specified site; M48.061 Spinal stenosis, lumbar region without neurogenic claudication; M46.87 Other specified inflammatory spondylopathies, lumbosacral region; Y83.9 Surgical procedure, unspecified as the cause of abnormal reaction of the patient, or of later complication, without mention of misadventure at the time of the procedure; Y92.89 Other specified places as the place of occurrence of the external cause
CPT/HCPCS: 72158; 82565; A9575

== ENCOUNTER → 2019-10-12 | Outpatient (CLI) | payer MEDICARE ==
[2019-07-06 11:00] VITALS: BP 143/66
--- NOTE | 2019-10-12 10:11 | KCIC ---
MRI Lumbar Spine without and with contrast History: Postop infection Technique: Multiplanar, multi sequential pre and postcontrast MR imaging was performed of the lumbar spine. Comparison: August 20, 2019 Findings: There is again posterolateral fusion hardware with bilateral pedicle screws L4 and L5. There is L4-5 interbody graft. There is again prominent L4-5 endplate edema overall unchanged, no new fluid in the intervertebral disc space. There is endplate irregularity about L4-5 interbody graft, overall unchanged. There is again moderate to severe narrowing of the L4-5 intervertebral disc space, also moderate to severe degenerative disc disease at L1-L2 and to a lesser degree at L2-3 and L3-4. There is a tiny hemangioma of the T12 vertebral body as seen previously. Conus terminates at T12-L1. There is again grade 1 anterior spondylolisthesis L4-5, negligible posterior subluxation L3 relative to L4. There is again some posterior paraspinous soft tissue edema greatest on the right at L3-4 to the sacrum and on the left near L5-S1, somewhat decreased on the left at L3-4. L1-L2: There is minimal disc osteophyte complex and bulge. There is mild prominence of posterior epidural fat centrally, mild facet degenerative change, and mild buckling of the ligamentum flavum. Spinal canal is adequate. There is mild narrowing of the neural foramina greater on the left. L2-L3: There is minimal disc osteophyte complex and bulge. There is mild prominence of posterior epidural fat centrally. There is mild buckling of the ligamentum flavum and facet hypertrophic change. Spinal canal is not significantly narrowed. There is again mild to moderate right and mild left neural foramina compromise. L3-L4: There is mild prominence of posterior epidural fat, mild buckling of the ligamentum flavum and, and mild to moderate facet degenerative change. Spinal canal is overall adequate. There is moderate, left greater than right neural foramina compromise by disc osteophyte complex and facets. L4-L5: There is again facet degenerative change. There is mild partial uncovering of the posterior aspect of the disc due to spondylolisthesis with superimposed minimal disc osteophyte complex and bulge. There is similar degree of mild to moderate narrowing of the spinal canal. There is fairly severe narrowing of the left neural foramen by disc osteophyte complex and facet with contact of the exiting left L4 nerve root. There is also moderate to severe narrowing greater distally of the right neural foramen. L5-S1: Spinal canal is adequate. There is mild facet degenerative change. There is again [id number] narrowing of the left neural foramen. Impression: 1. Findings are very similar comparing with August 20, 2019 exam. There is again prominent L4-5 vertebral body edema extending the endplate although no new significant fluid in the intervertebral disc space. There is again posterolateral fusion hardware at L4-5. There is similar degree of ckwc-oy-hqflhjbj narrowing of the spinal canal at L4-5. There is multilevel lumbar neural foramina compromise as stated, more significant narrowing bilaterally at L4-5 and to a lesser degree bilaterally at L3-4, on the right at L2-3, and on the left at L5-S1. Electronically signed by: Rigoberto Sevilla MD (10/12/2019 10:09 AM) [id number]
== END ==
LOC: KCIC MRI 08:21
PROVIDERS: ATTEND Neurological Surgery
DX: T81.42XD Infection following a procedure, deep incisional surgical site, subsequent encounter (principal); M25.78 Osteophyte, vertebrae; M43.16 Spondylolisthesis, lumbar region; M48.07 Spinal stenosis, lumbosacral region; G95.19 Other vascular myelopathies; M51.36 Other intervertebral disc degeneration, lumbar region; Y83.8 Other surgical procedures as the cause of abnormal reaction of the patient, or of later complication, without mention of misadventure at the time of the procedure
CPT/HCPCS: 72158; 82565; A9575

== ENCOUNTER → 2019-12-26 | Outpatient (CLI) | payer MEDICARE ==
[2019-07-06 11:00] VITALS: BP 143/66
--- NOTE | 2019-12-26 13:33 | RAD ---
LUMBAR SPINE WO/W CONTRAST Date: 12/26/2019 11:15 AM Indication: LBP, HX OF POST OP INFECTION Comparison: 10/12/2019. Technique: Multi-planar multi-weighted magnetic resonance imaging of the lumbar spine was performed with and without intravenous contrast using the standard lumbar spine protocol. 19 cc Dotarem contrast was administered intravenously during the examination. FINDINGS: Postsurgical changes of posterior decompression and instrumentation at L4-5 with interbody spacer placement. Unchanged edema and enhancement of the L4-5 endplates. No intradiscal or epidural fluid collection. Trace anterolisthesis at L4-5. No acute fracture. Mild to moderate multilevel degenerative disc desiccation and disc height loss. T12 hemangioma. The conus terminates at a normal level. No abnormal signal is seen within the visualized distal spinal cord. No clumping of intrathecal nerve roots. No soft tissue abnormality in the visualized abdomen or pelvis. T12-L1: No disc bulge. No facet arthropathy. No significant spinal stenosis or neural foraminal narrowing. L1-L2: Disc bulge. Mild facet arthropathy. Mild spinal stenosis. Mild bilateral neural foraminal narrowing. L2-L3: Disc bulge. Mild facet arthropathy. Mild spinal stenosis. Mild bilateral neural foraminal narrowing. L3-L4: Disc bulge. Mild facet arthropathy. Mild spinal stenosis. Mild bilateral neural foraminal narrowing. L4-L5: Posterior decompression. Mild to moderate spinal canal stenosis. Moderate right and severe left neural foraminal narrowing. L5-S1: Disc bulge. Mild facet arthropathy. No significant spinal stenosis or neural foraminal narrowing. IMPRESSION: Postsurgical changes of posterior decompression and instrumentation at L4-5 with interbody spacer. Unchanged edema and enhancement of the adjacent L4-5 endplates. No intradiscal or epidural fluid collections. Electronically signed by: Rigoberto Morris MD (12/26/2019 1:30 PM) [id number]
== END | disposition home or self-care (01) ==
LOC: MRI 11:08
PROVIDERS: ATTEND Neurological Surgery
DX: M47.817 Spondylosis without myelopathy or radiculopathy, lumbosacral region (principal); M51.36 Other intervertebral disc degeneration, lumbar region; T81.42XD Infection following a procedure, deep incisional surgical site, subsequent encounter; D18.09 Hemangioma of other sites
CPT/HCPCS: 72158; A9575

== ENCOUNTER → 2020-02-11 | Outpatient (CLI) | payer MEDICARE ==
[2019-07-06 11:00] VITALS: BP 143/66
[~2020-02-11] MED LIST changes: -GADOTERATE 7.5 MMOL/15ML VIAL. IVP ONE
--- NOTE | 2020-02-11 15:36 | CARD ---
MR#: [id number] Date of Study: 02/11/2020 Ordering Physician: ALESSIO SPENCER, Referring Physician: ALESSIO SPENCER Tech: Lauryn Hill RDCS APPROVED REPORT EXAM: Two-dimensional and M-mode echocardiogram with Doppler and color Doppler. Other Information Quality : Good INDICATION Cardiomegaly 2D DIMENSIONS RVDd3.1 (2.9-3.5cm)Left Atrium(2D)3.5 (1.6-4.0cm) IVSd0.9 (0.7-1.1cm)Aortic Root(2D)2.8 (2.0-3.7cm) LVDd4.5 (3.9-5.9cm)LVOT Diameter2.1 (1.8-2.4cm) PWd0.9 (0.7-1.1cm)LVDs3.0 (2.5-4.0cm) FS (%) 33.2 %SV56.7 ml LVEF(%)61.9 (>50%) Aortic Valve AoV Peak Giovany.122.8cm/sAoV VTI24.1cm AO Peak GR.6.0mmHgLVOT Peak Giovany.101.9cm/s LVOT VTI 21.75cmAO Mean GR.3mmHg SUNNI (VMAX)2.71sn9OMM (VTI)3.09cm2 Mitral Valve MV E Ctnstgza37.0cm/sMV DECEL CIVJ505id MV A Afvpztne42.2cm/sMV TLD95wk E/A Ratio1.0MVA (PHT)3.57cm2 TDI E/Lateral E'10.9E/Medial E'11.4 Pulmonary Vein S1 Jemodypx15.6cm/sD2 Jngyxoha79.6cm/s LEFT VENTRICLE The left ventricle is normal size. There is normal left ventricular wall thickness. The left ventricu lar systolic function is normal and the ejection fraction is within normal range. The Ejection Fracti on is 55-60%. There is normal LV segmental wall motion. Transmitral Doppler flow pattern is Grade I-a bnormal relaxation pattern. RIGHT VENTRICLE The right ventricle is normal size. The right ventricular systolic function is normal. ATRIA The left atrium size is normal. The right atrium size is normal. The interatrial septum is intact wit h no evidence for an atrial septal defect or patent foramen ovale as noted on 2-D or Doppler imaging. AORTIC VALVE The aortic valve is calcified but opens well. Doppler and Color Flow revealed no significant aortic r egurgitation. There is no significant aortic valvular stenosis. MITRAL VALVE The mitral valve is calcified but opens well. There is no evidence of mitral valve prolapse. There is no mitral valve stenosis. Doppler and Color-flow revealed trace mitral regurgitation. TRICUSPID VALVE The tricuspid valve is normal in structure and function. Doppler and Color Flow revealed no tricuspid valve regurgitation noted. There is no tricuspid valve stenosis. PULMONIC VALVE The pulmonic valve is not well visualized. Doppler and Color Flow revealed mild pulmonic valvular reg urgitation. There is no pulmonic valvular stenosis. GREAT VESSELS The aortic root is normal in size. The ascending aorta is normal in size. The IVC is normal in size a nd collapses >50% with inspiration. PERICARDIAL EFFUSION There is no evidence of significant pericardial effusion. Critical Notification Critical Value: No <Conclusion> The left ventricle is normal size. The left ventricular systolic function is normal and the ejection fraction is within normal range. The Ejection Fraction is 55-60%. Doppler and Color Flow revealed no significant aortic regurgitation. There is no significant aortic valvular stenosis. Doppler and Color-flow revealed trace mitral regurgitation. Doppler and Color Flow revealed no tricuspid valve regurgitation noted. Doppler and Color Flow revealed mild pulmonic valvular regurgitation. Signed by : Iam Tabares MD Electronically Approved : 02/11/2020 15:35:46
== END ==
LOC: ECHO 10:49
PROVIDERS: ATTEND Family Medicine
DX: I08.8 Other rheumatic multiple valve diseases (principal)
CPT/HCPCS: 93306

== ENCOUNTER → 2020-07-11 | Outpatient (CLI) | payer MEDICARE ==
[2019-07-06 11:00] VITALS: BP 143/66
[~2020-07-11] MED LIST changes: +LISI10TA16 PO; -LISI10TA2 PO
--- NOTE | 2020-07-11 15:17 | RAD ---
EXAM: CT low dose lung cancer screening. HISTORY: Cigarette smoking. TECHNIQUE: Computed tomographic images of the chest were obtained without contrast. Multiplanar refor matting was performed. *One or more of the following individualized dose reduction techniques were utilized for this examina tion: 1. Automated exposure control. 2. Adjustment of the mA and/or kV according to patient size. 3. Use of iterative reconstruction technique. COMPARISON: 09/05/2017. FINDINGS: The heart is normal in size. The aorta is normal in caliber. There is calcified mediastinal granulomas. No pathologically enlarged lymph node is seen. There is no pneumothorax or pleural effus ion. There is no infiltrate. There are calcified granulomas within the right lung. There is a 3 mm no dule within the anterior right middle lobe disease series 2, image 159). There is a 2 mm pleural-base d nodule within the posterior right lower lobe (series 2, image 143). There is a 2 mm nodule within t he posterior right lower lobe (series 2, image 175). There is minimal biapical predominant emphysema. There is mild bronchial wall thickening. There is no acute finding involving the upper abdomen or os seous structures. IMPRESSION: 1. Minimal emphysema and slight bronchial wall thickening, a finding which can be seen as a sequela o f bronchitis. There is no acute infiltrate. 2. Tiny noncalcified pulmonary nodules measuring up to 3 mm. Lung RADS category 2: 12 month follow-up low dose lung cancer screening CT is recommended. Electronically signed by: Sandy Manuel MD (07/11/2020 3:14 PM) [id number]
== END ==
LOC: CT 10:40
PROVIDERS: ATTEND Family Medicine
DX: Z12.2 Encounter for screening for malignant neoplasm of respiratory organs (principal); J43.9 Emphysema, unspecified; R91.1 Solitary pulmonary nodule; F17.210 Nicotine dependence, cigarettes, uncomplicated
CPT/HCPCS: 71271